=== PATIENT | female | born 1995 | race Caucasian/White ===

== ENCOUNTER 2017-08-02 14:32 | Emergency (ER) | payer OTHER ==
[~2017-08-02] VITALS: Ht 162.6 cm; Wt 65.9 kg
[2017-08-02] MEDS ORDERED: TRI-TAB PO (14:50)
[2017-08-02] MEDS ORDERED: FLON1SPR (14:50)
[2017-08-02 18:17] LABS: BASO % 0.3 % (0.0-1.0); EOS # 0.1 K/mm3 (0.0-0.50); EOS % 1.3 % (0.0-3.0); LARGE UNSTAINED CELL # 0.2 K/mm3 (0.0-0.4); LARGE UNSTAINED CELL % 1.9 % (0.0-4.0); LYMPH # 2.4 K/mm3 (1.5-6.5); LYMPH % 28.5 % (24.0-44.0); MEAN CORPUSCULAR HEMOGLOBIN 30.1 pg (27.0-33.0); MEAN CORPUSCULAR HGB CONC 34.4 g/dl (32.0-36.5); MEAN CORPUSCULAR VOLUME 87.2 fl (80.0-96.0); MONO # 0.3 K/mm3 (0.0-0.8); MONO % 3.7 % (0.0-5.0); NEUTROPHILS # 5.4 K/mm3 (1.8-7.7); NEUTROPHILS % 64.3 % (36.0-66.0); PLATELET COUNT, AUTOMATED 260 k/mm3 (150-450); RED CELL DISTRIBUTION WIDTH 12.6 % (11.5-14.5); WHITE BLOOD COUNT 8.3 K/mm3 (4.0-10.0)
[2017-08-02 18:35] LABS: ANION GAP 8 MEQ/L (8-16); BLOOD UREA NITROGEN 12 MG/DL (7-18); CALCIUM LEVEL 8.9 MG/DL (8.5-10.1); CARBON DIOXIDE LEVEL 26 MEQ/L (21-32); CHLORIDE LEVEL 106 MEQ/L (98-107); CREATININE FOR GFR 0.64 MG/DL (0.55-1.02); GLUCOSE, FASTING 83 MG/DL (70-105); POTASSIUM SERUM 3.7 MEQ/L (3.5-5.1); SODIUM LEVEL 140 MEQ/L (136-145)
--- NOTE | 2017-08-02 18:35 | REP ---
CHEST, PA AND LATERAL: 08/02/2017. Clinical history: 21-year-old female with chest pain. Comparison: None. Findings: The two-views show the lung pablo well inflated. The CP angles are sharply defined. There is no effusion, lateral pleural thickening, apical scarring or pneumothorax. No pneumomediastinum. No infiltrate, atelectasis, nodule or mass. The heart is not enlarged. There is no vascular redistribution or pulmonary edema. The aorta and airway intact. No free air under the diaphragm. Bony thorax unremarkable. Impression: 1. No acute cardiopulmonary change. Signed by Diogo Ortega MD 08/02/2017 08:07 P
[2017-08-02 19:19] VITALS: BP 125/81
--- NOTE | 2017-08-03 08:26 | ECGEPIP ---
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
== END 2017-08-02 19:20 | disposition home or self-care (01) ==
LOC: M ED 14:32
DX: M94.0 Chondrocostal junction syndrome [Tietze] (principal); Z79.899 Other long term (current) drug therapy

== ENCOUNTER → 2017-08-23 | Outpatient (CLI) | payer OTHER ==
[~2017-08-23] MED LIST: FLON1SPR; TRI-TAB PO
[2017-08-23 09:00] LABS: MEAN CORPUSCULAR HEMOGLOBIN 28.7 pg (27.0-33.0); MEAN CORPUSCULAR HGB CONC 32.8 g/dl (32.0-36.5); MEAN CORPUSCULAR VOLUME 87.5 fl (80.0-96.0); RED CELL DISTRIBUTION WIDTH 13.5 % (11.5-14.5); WHITE BLOOD COUNT 6.9 10^3/uL (4.0-10.0)
[2017-08-23 09:18] LABS: ALBUMIN 3.4 GM/DL (3.2-5.2); ALBUMIN/GLOBULIN RATIO 1.13 (1.00-1.93); ALKALINE PHOSPHATASE 34 U/L (45-117); ALT/SGPT 16 U/L (12-78); ANION GAP 5 MEQ/L (8-16); AST/SGOT 8 U/L (15-37); BILIRUBIN,TOTAL 0.1 MG/DL (0.2-1.0); BLOOD UREA NITROGEN 15 MG/DL (7-18); CALCIUM LEVEL 8.7 MG/DL (8.5-10.1); CARBON DIOXIDE LEVEL 27 MEQ/L (21-32); CHLORIDE LEVEL 108 MEQ/L (98-107); CHOLESTEROL LEVEL 172 MG/DL (<200); CREATININE FOR GFR 0.63 MG/DL (0.55-1.02); GLOMERULAR FILTRATION RATE > 60.0 (>60); GLUCOSE, FASTING 90 MG/DL (70-105); POTASSIUM SERUM 4.3 MEQ/L (3.5-5.1); SODIUM LEVEL 140 MEQ/L (136-145); THYROXINE (T4) 10.8 UG/DL (4.5-12.0); TOTAL PROTEIN 6.4 GM/DL (6.4-8.2); TRIGLYCERIDES LEVEL 72 MG/DL (<150)
--- NOTE | 2017-08-23 19:36 | ECGEPIP ---
Stationary ECG Study [facility] Test Date: 2017-08-23 Pat Name: LIANNE BARKER Department: Room: - Gender: F Qa Lead: ELYSE : 1995 Requested By: Mari Duke Order Number: [id number] Reading MD: Elsy Valdez Measurements Intervals [place] Rate: 60 P: 46 [place]: 195 QRS: 56 QRSD: 92 T: 26 QT: 394 QTc: 396 Interpretive Statements SINUS RHYTHM WITH SINUS ARRHYTHMIA PROB EARLY REPOLAR CHANGES NEW C/W 08/02/17 Electronically Signed On 08-23-2017 19:36:36 EDT by Elsy Valdez
--- NOTE | 2017-08-23 20:47 | ECHO ---
DATE OF PROCEDURE: 08/23/2017 REFERRING PHYSICIAN: Srikanth Martinez MD PATIENT LOCATION: Outpatient REASON FOR ECHOCARDIOGRAM: Heart murmur. 2D MEASUREMENTS: IVS: 0.95 cm LV: 4.4 cm LVPW: 0.901 cm LA: 3.3 cm Aorta: 2.6 cm IVC: 1.9 cm DOPPLER MEASUREMENTS: Peak velocity across the aortic valve: 1.2 m/s Peak velocity across the LVOT: 0.64 m/s Mitral E: 0.99, Mitral A: 0.40, with a ratio of 2.5 Maximum tricuspid valve velocity: 1.8 m/s 2D COMMENTS: 1. Normal left ventricular size, wall thickness and normal global left ventricular systolic function. The estimated left ventricular systolic ejection fraction is 60 to 65%. 2. Normal left atrium. Normal right atrium and right ventricle. 3. The atrial septum appeared to be normal without evidence of defect or shunt. 4. Normal aortic root. 5. No pericardial effusion seen. 6. The aortic valve, mitral valve, tricuspid valve, and pulmonic valve appeared to be normal. The proximal pulmonary artery branches also appeared to be normal in size. 7. The inferior vena cava was normal in size, central venous pressure is most likely normal. DOPPLER: It detects only trace mitral regurgitation, trace tricuspid regurgitation, and trace pulmonic regurgitation. The calculated pulmonary artery systolic pressure was normal, less than 30 mmHg. Assessment of the left ventricular diastolic function was normal. IMPRESSION: 1. Normal global left ventricular systolic and diastolic function. 2. Trace mitral regurgitation. 3. Trace tricuspid regurgitation with a normal calculated pulmonary artery systolic pressure. 4. Trace pulmonic regurgitation. [facility] CENTERVandana
== END ==
LOC: M LAB 07:50
PROVIDERS: ATTEND Family Medicine
DX: R01.1 Cardiac murmur, unspecified (principal); D64.9 Anemia, unspecified; R53.83 Other fatigue

== ENCOUNTER → 2020-08-19 | Outpatient (CLI) | payer OTHER ==
[~2020-08-19] MED LIST changes: +E-Z-GAS II EFFERVESCENT PACKET (SODIUM BICARB./CITRIC ACID/SIMETHICONE) As Ordered ONE; +E-Z-HD 98% w/w 340GM SUSP BTL As Ordered ONE; +E-Z-PAQUE 96% w/w SUSP 176GM BTL As Ordered ONE
[2020-08-19 08:17] LABS: URINE PREG TEST NEGATIVE (NEGATIVE)
--- NOTE | 2020-08-24 09:50 | REP ---
RIGHT UPPER QUADRANT ULTRASOUND HISTORY: Abdominal pain. TECHNIQUE: Real-time sonographic evaluation of the right upper quadrant is performed. FINDINGS: Gallbladder demonstrates no evidence of intraluminal sludge or calculi, wall thickening, or pericholecystic fluid. There is no intrahepatic or extrahepatic biliary dilatation, common bile duct measuring 3 mm. The liver is normal in size and echotexture with no mass. Pancreas demonstrates no mass. Right kidney demonstrates no hydronephrosis with normal size 10.6 cm in length. There is no ascites. IMPRESSION: Negative right upper quadrant ultrasound. MTDD
--- NOTE | 2020-08-24 09:51 | REP ---
UPPER GI EXAM This procedure was performed by WIL Johnston, under the direct supervision of Dr. Jeffery. The images were reviewed with Dr. Jeffery prior to dictation. The perch mender film shows no organomegaly or pathologic masses. The intestinal gas pattern is nonspecific. Liquid barium and gas-producing crystals were given in the erect position, as well as liquid barium in the prone oblique position, in order to perform a double-contrast upper GI examination. The oral and pharyngeal stages of deglutition were unremarkable. Esophageal transport is prompt and efficient. There is no esophagitis, stricture, or mucosal ring. There is no hiatal hernia. Gastroesophageal reflux was visualized to the level of the eladio. The stomach rosas are normally outlined. The rugal folds are smooth and regular. There is no gastritis, neoplasm, or ulcer disease. The duodenal rosas are normally outlined. The mucosal folds are smooth and regular. There is no duodenitis, peptic ulcer disease, or neoplasm. The visualized portion of the small bowel appears normal in course and caliber. IMPRESSION: Gastroesophageal reflux to the level of the eladio. 0.6 minutes of fluoroscopy time was utilized for this procedure. MTDD
== END ==
LOC: M RAD 07:05
PROVIDERS: ATTEND Family Medicine
DX: R10.9 Unspecified abdominal pain (principal); K27.9 Peptic ulcer, site unspecified, unspecified as acute or chronic, without hemorrhage or perforation